=== PATIENT | male | born 1980 | race Caucasian/White ===

== ENCOUNTER 2016-08-16 16:12 | Emergency (ER) | payer MEDICAID, OTHER ==
[~2016-08-16 16:12] MED LIST: NS 0.9% 1000 ML* 1,000 ML IV ONE; Naloxone Nasal Spray* 4 MG/0.1 ML NASAL.SPR NASAL ONE
--- NOTE | 2016-08-16 21:00 | UC ---
Talha Carranza Erika, scribed for Hazel Aguilar DO on 08/16/16 at 1620 . General HPI - HPI Summary HPI Summary: Patient is a 36-year-old male presenting to [facility] with a CC of overdose. Per , patient was in the car at the gas station while was pumping gas. When returned to the car, pt was unresponsive. She states that patient's lips were blue, and pt was gasping for air. She was able to locate a pulse. states that they arrived at the [facility] parking lot 10 minutes after symptoms began. Pt states that he had snorted heroin for the first time in years - this is his usual method of heroin use. Currently, pt states he feels diaphoretic. Hx bipolar disorder, anxiety, chronic back pain. He denies prior overdose. Pt usually takes Xanax and oxycodone, but denies taking either today. FHx depression, anxiety, HTN, liver disease. Pt smokes 1/2 PPD, and denies alcohol use. - History of Current Complaint Stated Complaint: OVERDOSE Hx Obtained From: Patient, Family/Blanket [employer] - Onset/Duration: Sudden Onset, Lasting Minutes, Still Present - on arrival Timing: Constant Onset Severity: Severe Associated Signs & Symptoms: Positive: Confusion, Decreased Responsiveness, SOB - Allergy/Home Medications Allergies/Adverse Reactions: Allergies Allergy/AdvReac Type Severity Reaction Status Date / Time Valproic Acid [From Depakote] Allergy Severe Altered Verified 08/16/16 16:35 Mental Status PMH/Surg Hx/FS Hx/Imm Hx Endocrine History Of: Denies: Diabetes Cardiovascular History Of: Denies: Hypertension, Pacemaker/ICD GI/ History Of: Denies: Renal Disease Psychological History Of: Reports: Anxiety, Bipolar Disorder - Surgical History Surgical History: Yes Surgery Procedure, Year, and Place: LAMINECTOMY L4-L5-S1 2005 - Family History Known Family History: Positive: Hypertension, Other - depression, anxiety, liver disease - Social History Lives: With Family Alcohol Use: None Substance Use Type: Heroin Smoking Status (MU): Never Smoked Tobacco Review of Systems Constitutional: Other - diaphoretic Skin: Other - face and lips turned blue Eyes: Negative ENT: Negative Respiratory: Shortness Of Breath Cardiovascular: Negative Gastrointestinal: Negative Genitourinary: Negative Motor: Negative Neurovascular: Negative Musculoskeletal: Negative Neurological: Other - unresponsive Psychological: Negative All Other Systems Reviewed And Are Negative: Yes Physical Exam Triage Information Reviewed: Yes Appearance: Ill-Appearing - blue Vital Signs Reviewed: Yes Eyes: Positive: Conjunctiva Clear, Other: - pin point pupils ENT: Positive: Hearing grossly normal - after waking. Negative: Muffled/hoarse voice - after waking Neck exam: Normal Neck: Positive: Supple Respiratory: Positive: Lungs clear Cardiovascular: Positive: RRR Musculoskeletal Exam: Normal Neurological: Positive: Unresponsive Psychological: Positive: Other: - disoriented Skin: Positive: Other - face and lip blue - Additional Comments Pt was evaluated initially in the parking lot. Found to be non-responsive, his skin and lips were blue, a pulse was found but pt was gasping. He had pinpoint pupils. Within 5 minutes after administration of two nasal Narcans, pt became responsive, breathing normalized, pupils dilated, and skin color returned to a don hue. He was disoriented on waking, did not know where he was or why he was here. His breath sounds were difficult to appreciate, but no actual wheezing, rales, or rhonchi were noted. Heart was tachycardic with no murmurs. Hearing grossly normal once revived. He did not have a hoarse voice. Musculoskeletal exam was WNL. His psychiatric and neurological exam revealed that he was disoriented, but he answered appropriately when asked questions. Course/Dx - Course Course Of Treatment: Two of nasal narcan given in the parking lot - Differential Dx - Multi-Symptom Provider Diagnoses: over dose - Physician Notifications Discussed Patient Care With: Dr. Estrada ([facility] [place] [facility]) at 16:35 - accepts to the ED Discharge - Discharge Plan Condition: Fair Disposition: TRANS HIGHER LVL OF CARE FAC The documentation as recorded by the Talha esparza Erika accurately reflects the service I personally performed and the decisions made by me, Hazel Aguilar DO.
[2016-08-16 22:21] VITALS: BP 154/97
== END 2016-08-16 16:30 | disposition short-term general hospital (02) ==
LOC: UCEAST 16:12
DX: T40.1X1A Poisoning by heroin, accidental (unintentional), initial encounter (principal); Y92.524 Gas station as the place of occurrence of the external cause
CPT/HCPCS: 99213; A9270-GY; G0463

== ENCOUNTER 2016-08-16 16:51 | Emergency (ER) | payer MEDICAID, OTHER ==
[2016-08-16 17:07] VITALS: BP 131/90
[2016-08-16 17:40] LABS: Hematocrit 42 % (42-52); Hemoglobin 14.2 g/dl (14.0-18.0); Mean Corpuscular HGB Conc 34 g/dl (31-36); Mean Corpuscular Hemoglobin 31 pg (27-31); Mean Corpuscular Volume 92 fL (80-94); Mean Platelet Volume 8 um3 (7.4-10.4); Red Blood Count 4.55 10^6/ul (4.0-5.4); Red Cell Distribution Width 13 % (10.5-15); White Blood Count 7.7 10^3/ul (3.5-10.8)
[2016-08-16 18:13] LABS: Anion Gap 3 mmol/L (2-11); BUN/Creatinine Ratio 7.5 (8-20); Blood Urea Nitrogen 9 mg/dL (6-24); CO2 Carbon Dioxide 28 mmol/L (22-32); Chloride 105 mmol/L (101-111); Glucose 168 mg/dL (70-100); Potassium 4.9 mmol/L (3.5-5.0); Sodium 136 mmol/L (133-145)
[2016-08-16 18:14] LABS: ALT 60 U/L (7-52); AST 32 U/L (13-39); Albumin 3.7 g/dL (3.2-5.2); Alkaline Phosphatase 64 U/L (34-104); Calcium 8.2 mg/dL (8.6-10.3); EGFR African American 88.6 (>60); EGFR Non-African American 68.9 (>60); Globulin 2.6 g/dL (2-4); Total Protein 6.3 g/dL (6.4-8.9)
[2016-08-16 18:27] LABS: Acetaminophen < 15 mcg/mL; Alcohol < 10 mg/dL (<10); Salicylate < 2.50 mg/dL (<30)
--- NOTE | 2016-08-16 22:09 | ED ---
Alexy Carranza Aidan, scribed for Buzz Feliz MD on 08/16/16 at 1800 . Substance Abuse/Use - HPI Summary HPI Summary: 36 y/o male presents to the ED with a complaint of an acute, moderate episode of overdose that occurred just [employer]. The patients fianc found him unresponsive after he snorted an unknown amount of heroine. While in the ED, the patient admitted to consuming 1mg of Xanax today as well. He denies consuming any alcohol or other drugs. EMS administered 8 narcan N which woke him up. According to EMS, he was slightly more alert after the narcan treatment than he is currently while in the ED. Pt denies any SI. At the moment, he feels tired. - History Of Current Complaint Chief Complaint: EDOverdose Stated Complaint: OVERDOSE Time Seen by Provider: 08/16/16 16:55 Hx Obtained From: Patient Ingestion History: Type/Name Of Drug - heroine ingested nasally, xanax ingested orally Overdose Characteristics: Oral - xanax, Inhalation - heroine Timing Of Abuse: Binge Use - unknown as to whether or not the patient is a frequent user, however, this incident was due to binge use Severity Initially: Moderate Severity Currently: Mild Aggravating Factor(s): Other - Pt wanted to get high Alleviating Factor(s): Other - unknown Associated Signs And Symptoms: Other: - tiredness - Risk Factor(s) Completed Suicide Risk Factors: White Israeli, Unemployed - Allergies/Home Medications Allergies/Adverse Reactions: Allergies Allergy/AdvReac Type Severity Reaction Status Date / Time Valproic Acid [From Depakote] Allergy Severe Altered Verified 08/16/16 16:35 Mental Status Home Medications: Home Medications ALPRAZolam TAB* [Xanax TAB*] 0.5 mg PO TID PRN 08/16/16 [History Confirmed 08/16] Escitalopram (NF) [Lexapro (NF)] 20 mg PO DAILY 08/16/16 [History Confirmed 09/27] PMH/Surg Hx/FS Hx/Imm Hx Previously Healthy: Yes Endocrine/Hematology History: Denies: Hx Diabetes Cardiovascular History: Reports: Hx Hypertension Denies: Hx Pacemaker/ICD History: Denies: Hx Renal Disease Sensory History: Denies: Hx Hearing Aid Psychiatric History: Reports: Hx Anxiety Denies: Hx Panic Disorder - Surgical History Surgery Procedure, Year, and Place: LAMINECTOMY L4-L5-S1 2005 Infectious Disease History: Denies: Traveled Outside the [place] in Last 30 Days - Family History Known Family History: Positive: Hypertension - Social History Occupation: Unemployed Lives: Alone Alcohol Use: UNKNOWN Substance Use Type: Reports: Heroin, Prescribed - Xanax Smoking Status (MU): Never Smoked Tobacco Review of Systems Constitutional: Other - tired Negative: Fever, Chills, Skin Diaphoresis Eyes: Negative ENT: Negative Cardiovascular: Negative Respiratory: Negative Gastrointestinal: Negative Genitourinary: Negative Musculoskeletal: Negative Skin: Negative Neurological: Other - OD from heroine and xanax Psychological: Normal All Other Systems Reviewed And Are Negative: Yes Physical Exam Triage Information Reviewed: Yes Vital Signs On Initial Exam: Initial Vitals Temp Pulse Resp BP Pulse Ox 97 F 82 15 131/90 96 08/16/16 16:57 08/16/16 16:57 08/16/16 16:57 08/16/16 16:57 08/16/16 16:57 Vital Signs Reviewed: Yes Appearance: Positive: Well-Appearing - Pt seems slightly tired but easily answers questions, there is no need to arouse him, No Pain Distress Skin: Positive: Warm, Skin Color Reflects Adequate Perfusion, Dry Head/Face: Positive: Other - Trunk, scalp, face, extremities all visualized, no bruising, injury, or tenderness Eyes: Positive: ISACC - at 6mm ENT: Positive: Other - moist mucosa Neck: Positive: Supple, Nontender - soft, No Lymphadenopathy, Other: - no edema Respiratory/Lung Sounds: Positive: Clear to Auscultation, Breath Sounds Present. Negative: Rales, Rhonchi, Wheezes Cardiovascular: Positive: RRR, Other - no gallops, S1, S2. Negative: Murmur, Rub Abdomen Description: Positive: Nontender, Soft. Negative: Distended - flat Bowel Sounds: Positive: Present Musculoskeletal: Positive: Other - no calf tenderness. Negative: Edema Left, Edema Right Neurological: Positive: Alert, Oriented to Person Place, Time, Speech Normal - no slurred speech, non-tangential speech Psychiatric: Positive: Normal - answering appropriately, logically, denies SI, states intention for using heroine Diagnostics - Vital Signs Vital Signs Temp Pulse Resp BP Pulse Ox 08/16/16 16:57 97 F 82 15 131/90 96 - Laboratory Lab Results: Lab Results 08/16/16 08/16/16 Range/Units 17:22 17:22 WBC 7.7 (3.5-10.8) 10^3/ul RBC 4.55 (4.0-5.4) 10^6/ul Hgb 14.2 (14.0-18.0) g/dl Hct 42 (42-52) % MCV 92 (80-94) fL MCH 31 (27-31) pg MCHC 34 (31-36) g/dl RDW 13 (10.5-15) % Plt Count 179 (150-450) 10^3/ul MPV 8 (7.4-10.4) um3 Neut % (Auto) 80.7 (38-83) % Lymph % (Auto) 11.1 L (25-47) % Slope % (Auto) 5.8 (1-9) % Eos % (Auto) 2.0 (0-6) % Baso % (Auto) 0.4 (0-2) % Absolute Neuts (auto) 6.2 (1.5-7.7) 10^3/ul Absolute Lymphs (auto) 0.9 L (1.0-4.8) 10^3/ul Absolute Monos (auto) 0.4 (0-0.8) 10^3/ul Absolute Eos (auto) 0.2 (0-0.6) 10^3/ul Absolute Basos (auto) 0 (0-0.2) 10^3/ul Absolute Nucleated RBC 0 10^3/ul Nucleated RBC % 0 Sodium 136 (133-145) mmol/L Potassium 4.9 (3.5-5.0) mmol/L Chloride 105 (101-111) mmol/L Carbon Dioxide 28 (22-32) mmol/L Anion Gap 3 (2-11) mmol/L BUN 9 (6-24) mg/dL Creatinine 1.20 H (0.67-1.17) mg/dL Est GFR ( Amer) 88.6 (>60) Est GFR (Non-Af Amer) 68.9 (>60) BUN/Creatinine Ratio 7.5 L (8-20) Glucose 168 H (70-100) mg/dL Calcium 8.2 L (8.6-10.3) mg/dL Total Bilirubin 0.40 (0.2-1.0) mg/dL AST 32 (13-39) U/L ALT 60 H (7-52) U/L Alkaline Phosphatase 64 (34-104) U/L Total Protein 6.3 L (6.4-8.9) g/dL Albumin 3.7 (3.2-5.2) g/dL Globulin 2.6 (2-4) g/dL Albumin/Globulin Ratio 1.4 (1-3) TSH 2.30 (0.34-5.60) mcIU/mL Salicylates < 2.50 (<30) mg/dL Acetaminophen < 15 mcg/mL Serum Alcohol < 10 (<10) mg/dL Result Diagrams: 08/16/16 17:22 08/16/16 17:22 Lab Statement: Any lab studies that have been ordered have been reviewed, and results considered in the medical decision making process. Re-Evaluation - Re-Evaluation First Eval Re-Evaluation Time: 19:22 - Pt is feeling much better on re-evaluation. Still no SI/HI Change: Improved Course/Dx - Course Course Of Treatment: The patient presents via EMS for overdose after having snorted heroine and ingesting 0.5mg of Xanax x2 earlier in the day. On arrival to the ED, he was treated with narcan. Without a doubt, he claimed to use recreationally with no SI. He has now been here for 2.5 hours and shows no signs of recurrent sedation after being given narcan en route. His vitals have remained stable and exams benign. I asked him again if there he has any SI and he again denied. He refused to see a psychiatrist tonight. We will refer to the [facility] referral center. If any symptoms worsen, he has agreed to return. Pt claims that he has a lot to live for. - Diagnoses Differential Diagnosis/HQI/PQRI: Positive: Acute Psychosis, Alcohol Abuse, Alcohol Withdrawal, Anxiety, Bipolar Disorder, Delirium Tremens, Depression, Drug Abuse, Drug Withdrawal, Metabolic Disorder, Suicidal Risk Provider Diagnoses: Heroin abuse Discharge - Discharge Plan Condition: Good Disposition: HOME Patient Education Materials: Narcotic Abuse (ED) Additional Instructions: follow up with your primary care provider as we discussed. The documentation as recorded by the Alexy esparza Aidan accurately reflects the service I personally performed and the decisions made by me, Buzz Feliz MD.
== END 2016-08-16 19:36 | disposition home or self-care (01) ==
LOC: ED 16:51
DX: F11.10 Opioid abuse, uncomplicated (principal)
CPT/HCPCS: 36415; 80053; 80320; 80329; 84443; 85025; 99282; G0480